=== PATIENT | female | born 2000 | race Caucasian/White ===

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

== ENCOUNTER 2019-12-27 08:56 | Outpatient (REF) | payer MEDICAID, SELFPAY ==
[2019-12-31 15:33] LABS: Chlamydia Result Negative (Negative); GC Result Negative (Negative)
== END 2019-12-27 09:16 ==
LOC: NCHCN 08:56
PROVIDERS: PCP Nurse Practitioner Family; Visit Provider Nurse Practitioner Community Health
DX: Z11.3 Encounter for screening for infections with a predominantly sexual mode of transmission (principal); R30.9 Painful micturition, unspecified
CPT/HCPCS: 87491; 87591; 87086

== ENCOUNTER 2020-07-25 15:54 | Outpatient (REF) | payer MEDICAID, SELFPAY | END 2020-07-25 15:55 | disposition home or self-care (01) | LOC: NCHCN 15:54 | PROVIDERS: PCP Nurse Practitioner Family; Visit Provider Nurse Practitioner Family | DX: R10.9 Unspecified abdominal pain (principal); R82.998 Other abnormal findings in urine | CPT/HCPCS: 87086 ==

== ENCOUNTER 2021-01-15 10:07 | Outpatient (REF) | payer MEDICAID, SELFPAY ==
--- NOTE | 2021-01-15 09:15 | PAPFT_PTH ---
PATIENT: Steven Philip LOC: NCN U#:[id number] AGE/SX: 20/F ROOM: RE01/15/[address]: Elinor Ross : 2000 BED: DIS: 01/15/2021 SPEC #: [id number] RECD: 01/15/21 17:27 STATUS: FAHAD REAmy #: [id number] KYAW: 01/15/21 09:[address]: Elinor Salter DEPT: [facility] Cytology RECD BY: Gwendolyn Milian Tissues: 1 - CX/ENDOCX FOR PAP SMEARS Procedures: PAP THIN PREP/[facility] Screening Comments: [id number] (CHLAMYDIA/GC)
[2021-01-16 15:36] LABS: Chlamydia Result Negative (Negative); GC Result Negative (Negative)
== END 2021-01-15 10:08 | disposition home or self-care (01) ==
LOC: NCHCN 10:07
PROVIDERS: PCP Nurse Practitioner Family; Visit Provider Nurse Practitioner Family
DX: Z12.4 Encounter for screening for malignant neoplasm of cervix (principal); Z11.3 Encounter for screening for infections with a predominantly sexual mode of transmission; R87.610 Atypical squamous cells of undetermined significance on cytologic smear of cervix (ASC-US)
CPT/HCPCS: 87491; 87591; 88142

== ENCOUNTER 2021-02-23 16:26 | Outpatient (REF) | payer MEDICAID, SELFPAY | END 2021-02-23 16:27 | disposition home or self-care (01) | LOC: NCHCN 16:26 | PROVIDERS: PCP Nurse Practitioner Family; Visit Provider Family Medicine | DX: R30.0 Dysuria (principal) | CPT/HCPCS: 87077; 87086 ==

== ENCOUNTER 2021-04-08 17:33 | Outpatient (REF) | payer MEDICAID, SELFPAY ==
[2021-04-10 10:44] LABS: COVID-19 RT-PCR UVMMC Result Negative (Negative)
== END 2021-04-08 17:34 | disposition home or self-care (01) ==
LOC: NCHCN 17:33
PROVIDERS: PCP Nurse Practitioner Family; Visit Provider Nurse Practitioner Family
DX: Z20.822 Contact with and (suspected) exposure to COVID-19 (principal); J06.9 Acute upper respiratory infection, unspecified
CPT/HCPCS: U0003

== ENCOUNTER 2021-05-20 16:58 | Outpatient (REF) | payer MEDICAID, SELFPAY ==
[2021-05-22 15:46] LABS: COVID-19 RT-PCR UVMMC Result Negative (Negative)
== END 2021-05-20 16:59 | disposition home or self-care (01) ==
LOC: NCHCN 16:58
PROVIDERS: PCP Nurse Practitioner Family; Visit Provider Nurse Practitioner Family
DX: Z20.822 Contact with and (suspected) exposure to COVID-19 (principal); J02.9 Acute pharyngitis, unspecified
CPT/HCPCS: U0003

== ENCOUNTER 2021-12-15 14:42 | Outpatient (REF) | payer MEDICAID, SELFPAY ==
--- NOTE | 2021-12-15 08:45 | PAPFT_PTH ---
PATIENT: Steven Philip LOC: NCN #:[id number] AGE/SX: 21/F ROOM: RE12/15/[address]: Elinor Ross : 2000 BED: DIS: 12/15/2021 SPEC #: [id number] RECD: 12/15/21 18:48 STATUS: FAHAD PETERS #: [id number] KYAW: 12/15/21 08:[address]: Elinor Salter [facility] Cytology RECD BY: Gwendolyn Milian Tissues: 1 - CX/ENDOCX FOR PAP SMEARS Procedures: PAP THIN PREP/[facility] Screening Comments: [id number] (CHLAMYDIA/GC)
[2021-12-16 15:03] LABS: Chlamydia Result Negative (Negative); GC Result Negative (Negative)
== END 2021-12-15 14:43 | disposition home or self-care (01) ==
LOC: NCHCN 14:42
PROVIDERS: PCP Nurse Practitioner Family; Visit Provider Nurse Practitioner Family
DX: Z11.3 Encounter for screening for infections with a predominantly sexual mode of transmission (principal); Z12.4 Encounter for screening for malignant neoplasm of cervix; Z87.42 Personal history of other diseases of the female genital tract
CPT/HCPCS: 87491; 87591; 88142

== ENCOUNTER 2022-09-06 11:34 | Outpatient (REF) | payer BC, MEDICAID, SELFPAY ==
--- NOTE | 2022-09-06 16:45 | PAPFT_PTH ---
PATIENT: Steven Philip LOC: NCN #:[id number] AGE/SX: 22/F ROOM: RE09/06/[address]: Elinor Ross : 2000 BED: DIS: 09/06/2022 SPEC #: [id number] RECD: 09/07/22 12:51 STATUS: FAHAD REAmy #: [id number] KYAW: 09/06/22 16:[address]: Elinor Salter [facility] Cytology RECD BY: Gwendolyn Milian Tissues: 1 - CX/ENDOCX FOR PAP SMEARS Procedures: PAP THIN PREP/[facility] Screening Comments: [id number] (CHLAMYDIA/GC)
--- OUTSIDE RECORDS SUMMARY | 2022-09-07 11:12 | XMS_ITS | CCD ---
Author Name Unknown Address [address] [place] [address] [phone] Organization Unknown Address [address] [place] [address] [phone] Care Team Providers Care Dehydrogenation Operator Head Name Role Phone MELINDA MATTHEW Attending Physician [phone] MELINDA MATTHEW Er Physician 0 [phone] DOLLY Thacker Registered Nurse [phone] Vital Signs Vital Sign Value Unit Date/Time Recent/Initial ? BMI (Body Mass Index) 27.98 kg/m^2 11/27/2021 16: 35 Initial VS Weight Measured 163 lbs 11/27/2021 16:35 Ini tial VS Height 64 in 11/27/2021 16:35 Initial VS BSA (Body Surface Area) 1.83 m^2 11/27/2021 1 6:35 Initial VS BP Systolic 121 mmHg 11/27/2021 16:35 Initial VS BP Diastolic 76 mmHg 11/27/2021 16:35 Initia l VS Respiratory Rate 18 bpm 11/27/2021 16:35 In itial VS Heart Rate 79 bpm 11/27/2021 16:35 Initial VS O2 % BldC Oximetry 100 % 11/27/2021 16:35 Initial VS Body Temperature 36.7 degrees 11/27/2021 16:35 In itial VS Allergies Allergy Code Allergy Type Reaction Status DOXYCYCLINE 3640 Drug allergy RASH; NAUSEA/VOMITING Active Procedures Unknown or Not Available. History of Immunizations Unknown or Not Available. Problems Problem Code Start Date Resolved Date Status IBS [id number] Active Results COMPREHENSIVE METABOLIC PANE L (CMP) - Collect Date/Time: 11/27/2021 17:00 Test Name Code Test Result Test Units Test Ref Rang e GLUCOSE 2345-7 87 mg/dL L=70 H=116 BUN 3094-0 14 mg/dL L=6 H=25 CREATININE 2160-0 0.86 mg/dL L=0.51 H=0.95 SODIUM SERUM 2951-2 140 mmol/L L=136 H=145 POTASSIUM SERUM 2823-3 3.6 mmol/L L=3.4 H=5 .2 CHLORIDE SERUM 2075-0 103 mmol/L L=96 H=110 CARBON DIOXIDE (CO2) 2028-9 28 mmol/L L=22 H=34 ANION GAP 09938-7 9.4 mmol/L CALCIUM SERUM 92147-8 9.2 mg/dL L=8.2 H=10. 2 BILIRUBIN TOTAL 1975-2 0.2 mg/dL L=0.0 H=1 .3 ALK. PHOS. 6768-6 63 U/L L=46 H=116 SGOT (AST) 1920-8 12 U/L L=15 H=37 SGPT (ALT) 1742-6 18 U/L L=12 H=78 TOTAL PROTEIN 2885-2 7.5 gm/dL L=6.0 H=8.0 ALBUMIN 1751-7 4.4 gm/dL L=3.4 H=5.0 AGE 21 years eGFR (non-Afr.Amer.) 51903-2 83 mL/min eGFR (Afr-Australian) 13626-5 100 mL/min LIPASE* - Collect Date/Time: 11/27/2021 17:00 Test Name Code Test Result Test Units Test Ref Rang e LIPASE 64 U/L L=73 H=393 CBC W/ DIFFERENTIAL* - Colle ct Date/Time: 11/27/2021 17:00 Test Name Code Test Result Test Units Test Ref Rang e WBC 6690-2 13.31 th/cmm L=5.00 H=10.00 NEUT % 61.1 % L=40.0 H=80.0 LYMPH % 30.7 % L=10.0 H=50.0 MONO % 28057-1 5.6 % L=2.0 H=12.0 EOS % 1.9 % L=0.0 H=8.0 BASO % 0.5 % L=0.0 H=3.0 IG % 2514-8 0.2 % L=0.0 H=1.1 NRBC % 76521-3 0.0 % L=0.0 H=0.0 NEUT abs count 751-8 8.1 th/cmm L=1.6 H=8. 4 LYMPH abs count 731-0 4.1 th/cmm L=1.5 H=4 .0 MONO abs count 742-7 0.7 th/cmm L=0.2 H=1. 0 EOS abs count 711-2 0.3 th/cmm L=0.0 H=0.5 BASO abs count 704-7 0.1 th/cmm L=0.0 H=0. 2 IG abs count 32561-6 0.0 th/cmm L=0.0 H=0.1 NRBC abs count 48496-3 0.0 mil/cmm L=0.0 H=0. 0 RBC 789-8 4.64 mil/cmm L=3.90 H=5.40 HEMOGLOBIN 718-7 13.9 gm/dL L=12.0 H=16.0 HEMATOCRIT 4544-3 42 % L=37 H=47 MCV 787-2 91 fL L=82 H=92 MCH 785-6 30.0 pg L=27.0 H=31.0 MCHC 786-4 33.0 % L=32.0 H=36.0 RDW-SD 788-0 46.4 fL L=39.0 H=49.0 PLATELET COUNT 777-3 245 th/cmm L=150 H=45 0 CULT URINE CULTURE* - [facility] Date/Time: 11/27/2021 16:54 Test Name Code Test Result Test Units Test Ref Rang e COLLECTION MODE: 87735-5 CLEAN CATCH N/A URINALYSIS WITH REFLEX CULT IF POSITIVE* - Collect Date/Time: 11/27/2021 16:54 Test Name Code Test Result Test Units Test Ref Rang e COLLECTION MODE: 62666-2 CLEAN CATCH N/A Color 5778-6 YELLOW N/A yellow Appearance 5767-9 CLEAR N/A clear Glucose urine 65869-2 NEGATIVE N/A negative mg /dl Bilirubin 5770-3 NEGATIVE N/A negative Ketones 2514-8 NEGATIVE N/A negative mg/dl Spec gravity 5811-5 1.010 N/A 1.003 - 1.03 0 pH urine 2756-5 6.0 N/A 5.0 - 7.0 Protein 53998-4 NEGATIVE N/A negative mg/dl Urobilinogen 99646-3 0.2 N/A <or= 1 EU/dl Nitrite. 5802-4 NEGATIVE N/A negative Blood 5794-3 NEGATIVE N/A negative Leukocytes. SMALL N/A negative MICROSCOPIC INDICATED N/A WBCs. 76247-6 0-5 N/A 0-5 / hpf RBCs 24999-5 0-5 N/A 0-5 / hpf Epith cells 76231-9 0-5 N/A 0-5 / hpf Cell types squamous N/A Crystals none N/A none Bacteria none N/A none Mucus 8247-9 none N/A none Casts 61617-6 none N/A none /lpf TEST (URINE) QUALI TATIVE - Collect Date/Time: 11/27/2021 16:54 Test Name Code Test Result Test Units Test Ref Rang e TEST 6-3 NEGATIVE N/A Active Medications Unknown or Not Available. Medications Administered During Visit Unknown or Not Available. Encounters Encounter Diagnosis Diagnosis Code Start Date Right upper quadrant pain R1011 2021 Social History Smoking Status Code Start Date End Date Never smoker [id number] Patient Decision Aids Unknown or Not Available. Discharge Instructions You were admitted to [facility] on 11/27/2021 16:12 with a principal diagnosis of Right upper quadrant pain You had the following tests done:CBC W/ DIFFERENTIAL*COMPREHENSIVE METABOLIC PANEL (CMP)LIPASE*CULT URINE CULTURE* TEST (URINE) QUALITATIVEURINALYSIS WITH REFLEX CULT IF POSITIVE* You were discharged from [facility] on 11/27/2021 18:10 Should you have any questions prior to discharge, please contact a member of your healthcare team. If you have left the hospital and have any questions, please contact your primary care physician. Chief Complaint and Reason For Visit Chief Complaint Date of Onset ABDOMINAL PAIN Function Status Unknown or Not Available. Plan of Care Unknown or Not Available. Referral/Transition of Care Unknown or Not Available.
--- OUTSIDE RECORDS SUMMARY | 2022-09-07 11:12 | XMS_ITS | Continuity of Care Document ---
Author Name Unknown Organization [facility] Address [address] [place] [address] Encounter [facility] Date(s): 04/13/22 - 04/13/22 [facility] [address] [place] [address] Encounter Diagnosis Vomiting and diarrhea(Discharge Diagnosis) - 04/13/22 Diarrhea, unspecified(Discharge Diagnosis) - 04/13/22 Vomiting, unspecified(Final) - Diarrhea, unspecified(Final) - Contact with and (suspected) exposure to COVID-19(Final) - Discharge Disposition: Home or Self Care Attending Physician: Alexsandra Ordonez MD Admitting Physician: Alexsandra Ordonez MD Allergies, Adverse Reactions, Alerts Substance Reaction Severity Status doxycycline Unknown Active Functional Status 04/13/22 Other exposure to Infectious Disease Non e Medications gabapentin 0 Refill(s) Start Date: 04/13/22 Status: Ordered LaMICtal 0 Refill(s) Start Date: 04/13/22 Status: Ordered valACYclovir 0 Refill(s) Start Date: 04/13/22 Status: Ordered Results Laboratory List Name Date SARS-CoV-2 (COVID-19) RNA (ID Now) Urinalysis Microscopic 04/13/22 Urinalysis with Micro if Indicated and C ulture if Indicated 04/13/22 Most recent to oldest [Reference Range]: 1 UA Color Straw (04/13/22 6:10 PM) UA WBC [0-3] 0-3 (04/13/22 6:10 PM) UA Urobilinogen Normal (04/13/22 6:10 PM) UA Bili [Negative] Negative (04/13/22 6:10 PM) UA Ketones Negative (04/13/22 6:10 PM) UA RBC [0-2] 0-2 (04/13/22 6:10 PM) UA Leuk Est Trace *ABN* (04/13/22 6:10 PM) UA Nitrite Negative (04/13/22 6:10 PM) UA Glucose [Negative] Negative (04/13/22 6:10 PM) UA Bacteria None Seen /HPF (04/13/22 6:10 PM) UA Protein Negative (04/13/22 6:10 PM) UA Blood Negative (04/13/22 6:10 PM) UA Mucous None Seen /HPF (04/13/22 6:10 PM) UA Spec Grav <=1.005 *NA* (04/13/22 6:10 PM) UA Squam Epithelial [None Seen] Few *ABN* (04/13/22 6:10 PM) UA pH 6.0 *NA* (04/13/22 6:10 PM) UA Appear Clear (04/13/22 6:10 PM) UA Culture Ind?. Not Indicated (04/13/22 6:10 PM) SARS-CoV-2 (COVID-19) RNA (ID Now) [Not Detected] Not Detected (04/13/22 6:10 PM) Vital Signs Most recent to oldest [Reference Range]: 1 Temperature Temporal Artery [36-38 Deg C ] 36.1 Deg C (04/13/22 5:32 PM) Peripheral Pulse Rate [60-100 bpm] 103 b pm *HI* (04/13/22 5:32 PM) Respiratory Rate [12-24 br/min] 14 br/mi n (04/13/22 5:32 PM) Blood Pressure [90-140/60-90 mmHg] 135/6 2mmHg (04/13/22 5:32 PM) Weight Dosing 74.39 kg (04/13/22 5:38 PM) Weight Estimated 74.39 kg (04/13/22 5:32 PM) Height/Length Dosing 163.000 cm (04/13/22 5:38 PM) Height/Length Estimated 163.000 cm (04/13/22 5:32 PM) Social History Social History Type Response Tobacco Former tobacco user Tobacco Use:. Sex Female Physician Emergency department Note * Taqueria Galvez MD: PERFORM Event Display: ED Note Physician Authored Date: [id number] POPPY LAZAR :2000 Age:21 years Sex:Female Visit Date:04/13/2022 Basic Information Time Seen: Taqueria Galvez MD / 04/13/2022 17:34 Chief Complaint N/V/D x 2 days. Pt states eating and drinking okay. Approx. 6 watery stools, x4 emesis episodes today without blood. Denies chills, fevers, body aches. History Of Present Illness: Presenting concern is vomiting and diarrhea. ??Time of onset is yesterday.?? Patient continued today. ??Vomited x4 today.?? She has not vomited in the past several hours.?? She has loose stools whichare watery.?? There is no exposure to contaminated??food or water.?? There is no recent antibiotic use. ??There is no blood in the stool.?? Prior treatment with Pedialyte. Review of Systems: Of systems negative for fever, chest pain, cough, shortness of breath, upper respiratory symptoms, abdominal pain, urinary symptoms, abnormal bleeding, skin rash, myalgias.?? Patient did have a headache yesterday. Physical Exam Vitals & Measurements T:??36.1?C ??(Temporal Artery)?? HR:??103??(Peripheral)?? RR:??14?? BP:??135/62?? SpO2:??100%?? HT:??163.000??cm?? WT:??74.39??kg??(Estimated)?? O2 Therapy:??Room air?? Patient is no acute distress. ??She converses normally. ??Establishes maintains eye contact. ??Respirations are normal. ??Chest auscultation is normal back. ??Back palpation is normal.?? Abdominal exam is normal peer extremity exam is normal. ??Mental status exam is normal. Procedure No Qualifying Data Reexamination/Reevaluation Patient prefers not to have??lab test or IV fluids. Assessment/Plan 1.??Vomiting and diarrhea??R11.10 Ordered: Discharge Patient, 04/13/22 18:57:00 EST, Home Independently, Constant Indicator ?? Diarrhea, unspecified??R19.7 ?? Orders: CBC w/o Diff, Blood, Routine, 04/13/22 17:34:00 EST, Once, Nurse collect Comprehensive Metabolic Panel, Blood, Routine, 04/13/22 17:34:00 EST, Once, Nurse collect Peripheral IV Insertion, 04/13/22 17:34:00 EST Medication Reconciliation Unchanged gabapentin ?? lamoTRIgine (LaMICtal) ?? valACYclovir Problem List/Past Medical History Ongoing No qualifying data Historical No qualifying data Allergies doxycycline Social History Alcohol Never Electronic Cigarette/Vaping Electronic Cigarette Use: Use, within last 90 days. Use per Day: 1-25 Inhales/day. Substance Use Never Tobacco Former tobacco user Tobacco Use:. Lab Results UA Macroscopic?? LATEST RESULTS?? UA Color?? 04/13/22 18:10?? Straw?? UA Appear?? 04/13/22 18:10?? Clear?? UA Glucose?? 04/13/22 18:10?? Negative?? UA Bili?? 04/13/22 18:10?? Negative?? UA Ketones?? 04/13/22 18:10?? Negative?? UA Spec Grav?? 04/13/22 18:10?? <=1.005?? UA Blood?? 04/13/22 18:10?? Negative?? UA pH?? 04/13/22 18:10?? 6.0?? UA Protein?? 04/13/22 18:10?? Negative?? UA Urobilinogen?? 04/13/22 18:10?? Normal?? UA Nitrite?? 04/13/22 18:10?? Negative?? UA Leuk Est?? 04/13/22 18:10?? Trace Abnormal?? UA Culture Ind?.?? 04/13/22 18:10?? Not Indicated? UA Microscopic?? LATEST RESULTS?? UA WBC?? 04/13/22 18:10?? 0-3?? UA RBC?? 04/13/22 18:10?? 0-2?? UA Squam Epithelial?? 04/13/22 18:10?? Few Abnormal?? UA Mucous?? 04/13/22 18:10?? None Seen?? UA Bacteria?? 04/13/22 18:10?? None Seen? Infectious Disease?? LATEST RESULTS?? SARS-CoV-2 (COVID-19) RNA (ID Now)?? 04/13/22 18:10?? Not Detected? Electronically Signed on 04/13/22 07:14 PM Taqueria Galvez MD Emergency department Discharge instructions * Taqueria Galvez MD: PERFORM Event Display: ED Discharge Information Authored Date: [id number] POPPY LAZAR :2000 Age:21 years Sex:Female Visit Date:04/13/2022 Discharge Instructions We would like to thank you for allowing us to assist you with your healthcare needs. The following includes patient education materials and information regarding your injury/illness. Diagnosis from Today's Visit Vomiting and diarrhea Diarrhea, unspecified Discharge Vitals Temperature??(Temporal Artery) 97.0 ??F (36.1 ??C) Heart Rate??(Peripheral) 103 Respiratory Rate?? 14 Blood Pressure?? 135/62?? Height?? 64.17 in (163.000 cm) Weight??(Estimated) 164.03 lb (74.39 kg) Allergies doxycycline What to Do Next Instructions from Your Care Team No evidence of a serious problem.?? Not eating is fine. ??You must however maintain good fluid intake.?? If the diarrhea persist for more than??3 days??then??follow-up here with your primary care provider. ?? You do not have COVID. ?? Regular home, You were treated today on an emergency basis; it may be yancey to contact your primary care provider to notify them of your visit today. You may have been referred to your regular doctor or a specialist, please follow up as instructed. If your condition worsens or you can't get in to see the doctor, contact the Emergency Department. Medications What When Instructions Next Dose Unchanged gabapentin Unchanged lamoTRIgine (LaMICtal) Unchanged valACYclovir Tests Performed Lab Test Name Test Result Date/Time UA Color STRAW. 04/13/2022 18:10 EST UA Appear CLEAR. 04/13/2022 18:10 EST UA Glucose NEGATIVE 04/13/2022 18:10 EST UA Bili NEGATIVE 04/13/2022 18:10 EST UA Ketones NEGATIVE 04/13/2022 18:10 EST UA Spec Grav <=1.005 04/13/2022 18:10 EST UA Blood NEGATIVE 04/13/2022 18:10 EST UA pH 6.0 04/13/2022 18:10 EST UA Protein NEGATIVE 04/13/2022 18:10 EST UA Urobilinogen 0.2 Uro 04/13/2022 18:10 EST UA Nitrite NEGATIVE 04/13/2022 18:10 EST UA Leuk Est TRACE. 04/13/2022 18:10 EST UA Culture Ind?. Not Indicated 04/13/2022 18:10 EST UA WBC 0-3 04/13/2022 18:10 EST UA RBC 0-2 04/13/2022 18:10 EST UA Squam Epithelial Few 04/13/2022 18:10 EST UA Mucous None Seen 04/13/2022 18:10 EST UA Bacteria None Seen 04/13/2022 18:10 EST SARS-CoV-2 (COVID-19) RNA (ID Now) Not Detected 04/13/2022 18:10 EST Patient/Director Of Radio Services Signature Patient Name:POPPY LAZAR I have received this information and my questions have been answered. Patient/Director Of Radio Services Name: Patient/Director Of Radio Services Signature: Relationship to Patient: Witness Name/Signature: Date: Electronically Signed on: 04/13/2022 19:13 ESTSigned by:[facility] Emergency department Note * Savanna Costa: PERFORM Event Display: ED Notes Authored Date: [id number] Patient Care team information Care Team Personnel Name: Taqueria Galvez MD Position: Physician Member Role: ED Physician Address: Address: [address] [place] [phone] Name: Ne Lunsford Position: Nurse Member Role: ED Nurse
--- OUTSIDE RECORDS SUMMARY | 2022-09-07 11:12 | XMS_ITS | CCD ---
Author Name Unknown Address [address] [place] [address] [phone] Organization Unknown Address [address] [place] [address] [phone] Care Team Providers Care Hairspring Truing Inspector Name Role Phone NEREIDA LUNDBERG Attending Physician [phone] Vital Signs Unknown or Not Available. Allergies Unknown or Not Available. Procedures Unknown or Not Available. History of Immunizations Unknown or Not Available. Problems Problem Code Start Date Resolved Date Status IBS [id number] Active Results Unknown or Not Available. Active Medications Unknown or Not Available. Medications Administered During Visit Unknown or Not Available. Encounters Encounter Diagnosis Diagnosis Code Start Date Constipation, unspecified K5900 2021 Social History Smoking Status Code Start Date End Date Never smoker [id number] Patient Decision Aids Unknown or Not Available. Discharge Instructions You were admitted to [facility] on 11/17/2021 15:24 with a principal diagnosis of Constipation, unspecified You were discharged from [facility] on 11/17/2021 15:24 Should you have any questions prior to discharge, please contact a member of your healthcare team. If you have left the hospital and have any questions, please contact your primary care physician. Chief Complaint and Reason For Visit Unknown or Not Available. Function Status Unknown or Not Available. Plan of Care Unknown or Not Available. Referral/Transition of Care Unknown or Not Available.
[2022-09-08 13:33] LABS: Chlamydia Result Negative (Negative); GC Result Negative (Negative)
== END 2022-09-06 11:35 | disposition home or self-care (01) ==
LOC: NCHCN 11:34
PROVIDERS: PCP Nurse Practitioner Family; Visit Provider Nurse Practitioner Family
DX: Z11.3 Encounter for screening for infections with a predominantly sexual mode of transmission (principal); Z12.4 Encounter for screening for malignant neoplasm of cervix; R87.612 Low grade squamous intraepithelial lesion on cytologic smear of cervix (LGSIL); Z87.410 Personal history of cervical dysplasia
CPT/HCPCS: 87491; 87591; 88142